=== PATIENT | female | born 1995 | race Caucasian/White ===

== ENCOUNTER 2024-03-30 05:55 | Emergency (ER) | payer OTHER, BC, SELFPAY ==
[2024-03-30 06:13] VITALS: BP 149/91; PULSE 93; O2SAT 100; BMI 27.4
[2024-03-30 06:33] VITALS: TEMP 36.6
--- NOTE | 2024-03-30 06:39 | ED_ITS ---
HPI - Nausea/Vomiting/Diarrhea General Chief complaint: Nausea/Vomiting/Diarrhea Stated complaint: VOMITING Time Seen by Provider: 03/30/24 06:34 Source: patient Mode of arrival: walk-in Limitations: no limitations History of Present Illness HPI Narrative: patient presents complaining of recurrent vomiting. Also has epigastric pain. Similar problem in the past with unclear cause despite workup by GI. Took Zofran and it has not helped. Still has gallbladder . States in past HIDA scan was neg. Related Data Allergies Allergy/AdvReac Type Severity Reaction Status Date / Time amoxicillin [From Augmentin] Allergy Intermediate Hives Verified 03/30/24 06:17 clavulanic acid Allergy Intermediate Hives Verified 03/30/24 06:17 [From Augmentin] hydromorphone [From Dilaudid] Allergy Intermediate Hives Verified 03/30/24 06:17 Penicillins Allergy Intermediate Hives Verified 03/30/24 06:17 cefaclor [From Ceclor] Allergy Mild Hives Verified 03/30/24 06:17 Review of Systems ROS Status of ROS 10 or more systems reviewed and unremark able except as noted in history and below Exam Constitutional Vital Signs, click to edit/add: Last Vital Signs Temp 97.8 F 03/30/24 06:33 Pulse 93 H 03/30/24 06:13 Resp 20 03/30/24 06:13 BP 149/91 H 03/30/24 06:13 Pulse Ox 100 03/30/24 06:13 O2 Del Method Room Air 03/30/24 06:13 Common normals: no apparent distress, average body habitus, oriented x3, no limitations, healthy appearing, alert and well nourished [facility] Common normals: normocephalic and head/scalp atraumatic Respiratory Common normals: normal respiratory effort, no retractions, no use of accessory muscles and clear to auscultation bilaterally Cardio Common normals: regular rate, regular rhythm, S1 normal heart sound and S2 normal heart sound GI Common normals: Normal to inspection, nondistended, normoactive bowel sounds present and soft to palpation Other: mild epigastric tenderness. No guarding Extremity Common normals: normal to inspection and full ROM Neuro Common normals: oriented x3, CN's II-XII intact bilaterally, moves all extremities and no focal motor deficits Psych Appearance: grossly normal Course Vital Signs Vital signs: Vital Signs Pulse Rate 93 H 03/30/24 06:13 Respiratory Rate 20 03/30/24 06:13 Blood Pressure 149/91 H 03/30/24 06:13 Pulse Oximetry 100 03/30/24 06:13 Oxygen Delivery Method Room Air 03/30/24 06:13 Temperature 97.8 F 03/30/24 06:33 Pulse Rate 93 H 03/30/24 06:13 Respiratory Rate 20 03/30/24 06:13 Blood Pressure 149/91 H 03/30/24 06:13 Pulse Oximetry 100 03/30/24 06:13 Oxygen Delivery Method Room Air 03/30/24 06:13 MDM - Nausea/Vomiting/Diarrhea MDM Narrative Medical decision making narrative: presents with epigastric pain and vomiting. workup initiated and care transferred to oncoming physician at change of shift Discharge Plan Discharge Chief Complaint: Nausea/Vomiting/Diarrhea Clinical Impression: Nausea & vomiting Patient Disposition: Still a Patient Print Language: Tristanian Referrals: Petra Rey NP [Primary Care Provider] - 1 week
[2024-03-30] MEDS: 0.9 % SODIUM CHLORIDE 1,000 ML 999 ML IV (06:51)
[2024-03-30] MEDS: PROMETHAZINE HCL 12.5 MG in 0.9 % SODIUM CHLORIDE 50 ML 202 MG IV ×2 (06:52→08:27)
[2024-03-30 07:02] LABS: Basophils Absolute Auto 0.1 10^3/uL (0.0-0.1); Basophils Percent Auto 0.8 % (0.2-2.0); Eosinophils Absolute Auto 0.1 10^3/uL (0.0-0.7); Eosinophils Percent Auto 1.9 % (0.9-7.0); Hematocrit 44.4 % (36.0-48.0); Hemoglobin 14.5 g/dL (12.0-16.0); Immature Granulocytes Abs Auto 0.01 10^3/uL (0.00-0.03); Immature Granulocytes Pct Auto 0.2 % (0.0-0.5); Lymphocytes Absolute Auto 1.7 10^3/uL (1.2-3.8); Lymphocytes Percent Auto 27.9 % (20.5-60.0); Mean Corpuscular HGB Conc 32.7 g/dL (29.9-35.2); Mean Corpuscular Hemoglobin 28.4 pg (26.7-34.0); Mean Corpuscular Volume 87.1 fL (81.0-99.0); Mean Platelet Volume 9.8 fL (9.5-13.5); Monocytes Absolute Auto 0.3 10^3/uL (0.3-0.8); Monocytes Percent Auto 5.4 % (1.7-12.0); Neutrophils Absolute Auto 3.9 10^3/uL (1.4-6.5); Neutrophils Percent Auto 63.8 % (43.0-75.0); Platelet Count 345 10^3/uL (150-450); Red Cell Distribution Width 12.1 % (11.0-15.0); White Blood Count 6.2 10^3/uL (4.0-11.0)
[2024-03-30 07:06] LABS: Lactate/Lactic Acid 1.2 mmol/L (0.4-2.0)
[2024-03-30 07:15] LABS: Alanine Aminotransferase 21 U/L (14-59); Albumin Level 4.1 g/dL (3.4-5.0); Alkaline Phosphatase 78 U/L (46-116); Anion Gap 12.9; Aspartate Amino Transferase 17 U/L (15-37); BUN Creatinine Ratio 21.3; Bilirubin Total 0.5 mg/dL (0.2-1.0); Calcium 9.5 mg/dL (8.5-10.1); Carbon Dioxide 28.7 mmol/L (21.0-32.0); Chloride 101 mmol/L (98-107); Estimated GFR (African America >60 (>=60); Estimated GFR (Non-African Ame >60 (>=60); Globulin 4.3 g/dL; Glucose 85 mg/dL (74-106); Potassium 3.6 mmol/L (3.5-5.1); Sodium 139 mmol/L (136-145); Total Protein 8.4 g/dL (6.4-8.2); Troponin I High Sensitivity <4.0 pg/mL (4.0-51.3)
[2024-03-30 07:54] LABS: Bilirubin Urine NEGATIVE (NEGATIVE); Blood Urine TRACE-I (NEGATIVE); Clarity Urine CLEAR (CLEAR); Color Urine YELLOW (YELLOW); Glucose Urine UA NEGATIVE (NEGATIVE); Ketones Urine NEGATIVE (NEGATIVE); Leukocyte Esterase Urine TRACE (NEGATIVE); Nitrite Urine NEGATIVE (NEGATIVE); Protein Urine NEGATIVE (NEG/TRACE); Urobilinogen Urine 0.2 EU/dL (0.2-1.0)
[2024-03-30 08:01] LABS: HCG Qualitative Urine* NEGATIVE (NEGATIVE)
[2024-03-30 08:11] LABS: Urine Microscopic Indicated YES
[2024-03-30 08:19] LABS: RBC Urine 0-2 #/HPF (0-2)
[2024-03-30 08:20] LABS: Bacteria Urine MODERATE #/HPF (NONE SEEN); Mucus Urine TRACE (NONE SEEN); Squamous Epithelial Cell Urine FEW #/LPF (NONE/RARE)
[2024-03-30 08:21] LABS: Urine Culture Indicated YES
[2024-03-30] MEDS: FAMOTIDINE/PF 20 MG/2 ML VIAL IV (08:28)
[2024-03-30 08:36] VITALS: BP 128/84; PULSE 82; O2SAT 98
== END 2024-03-30 09:06 | disposition home or self-care (01) ==
PROVIDERS: Emergency Provider Internal Medicine; PCP Nurse Practitioner Family
DX: K29.70 Gastritis, unspecified, without bleeding (principal)
CPT/HCPCS: 36415; 80053; 81001; 83605; 83690; 84484; 84703; 85025; 87086; 96365; 96366; 96375; 99284

== ENCOUNTER 2025-09-05 19:27 | Emergency (ER) | payer OTHER, BC, SELFPAY ==
--- OUTSIDE RECORDS SUMMARY | 2024-09-03 12:00 | XMS_ITS ---
Author Organization [facility] es Address [address] [place] [address] Care Team Providers Care Rn Home Care Name Role Phone Steph Jones Primary Care Provider [phone] REASON FOR VISIT 3 month f/u; PPW DUE & PAYMENT Encounters Encounter Location Date Provider Diagnosis [address] [place] [address] 09/03/2024 Steph Jones Plan Of Treatment No Information Progress Notes * ROSCOE MICHELLE LDOB: [birth year] (30 yo F)Acc No.[id number]:09/03/2024 Behavioral Health Patient: ROSCOE TORRES Appointment Provider: JAMES MAHMOOD- :1995 A ge:29 Y S ex:Female Date:09/03/2024 Address:[facility] [address] [id number] Subjective: * Chief Complaints: * 3 month f/u; PPW DUE & PAYMENT Billing Information: * Procedure Codes: * Electronic signature of JAMES Devine i on 09/05/2025 at 07:34 PM EDT Sign off status: Pending * Appointment Provider: MARITA MAHMOODP- Date: Generated for Rubi ng/Faxing/eTransmitting on: 07:34 PM EDT
[2025-09-05 19:31] VITALS: BP 160/100; PULSE 96; TEMP 36.9; O2SAT 100; BMI 28.2
--- OUTSIDE RECORDS SUMMARY | 2025-09-05 19:34 | XMS_ITS | Patient Health Record ---
Author Organization [facility] es Address [address] [place] [address] Care Team Providers Care Emulsion Operator Name Role Phone Steph Jones Primary Care Provider Allergies Allergen (clinical drug ingredient) Drug/Non Drug Allergy documented on EMR Reaction Allergy Type Onset Date Status amoxicillin / clavulanate Augmentin hives Drug Allergy Active Biaxin hives Drug Allergy Active cefaclor Cefaclor hives Drug Allergy Active vortioxetine Trintellix stomach upset Drug Allergy Active naltrexone Naltrexone anaphylaxis Drug Allergy Act melissa Penicillin hives Drug Allergy Active Reason For Referral No Information Medications Medication SIG (Take, Route, Frequency, Duration) Notes Start Date End Date Status Ambien 5 MG Tablet 1 tablet orally as needed (prn) Not-Taking/PRN ALPRAZolam 0.25 MG Tablet 1 tablet orally as needed (prn) Not-Taking/PRN hydrOXYzine Pamoate 25 MG Capsule 1 or 2 capsules 3 times a day as needed Orally every 8 hrs Active Famotidine Active QUEtiapine Fumarate 50 mg Tablet TAKE 1 TABLET BY MOUTH AT BEDTIME as DIRECTED; Duration: 30 days Active Victoza 18 MG/3ML Solution as directed Subcutaneous Active Fetzima 20 MG Capsule Extended Release 24 Hour 1 capsule daily for 2 days then increase to 2 capsules daily. Orally Once a day; Duration: 30 day(s) 03/14/2022 Not-Taking/P RN Wellbutrin XL 300 MG Tablet Extended Release 24 Hour 1 tablet in the morning Orally Once a day; Duration: 30 days 11/05/2023 Not-Takin g/PRN Wellbutrin XL 150 MG Tablet Extended Release 24 Hour 1 tablet in the morning Orally Once a day; Duration: 30 days 11/05/2023 Active buPROPion HCl ER (XL) 300 mg Tablet Extended Release 24 Hour TAKE ONE TABLET BY MOUTH ONCE DAILY; Duration: 30 Not-Taking/PRN Victoza 18 MG/3ML Solution Pen-injector as directed Subcutaneous once a day Not-Taking/PRN Albuterol Sulfate HFA Active LORazepam 0.5 mg Tablet TAKE 1 TABLET BY MOUTH TWICE DAILY as NEEDED FOR ANXIETY as DIRECTED; Duration: 30 days 06/04/2024 Active ZyrTEC Allergy 10 MG Tablet 4 tablets Orally daily Activ e busPIRone HCl 10 mg Tablet TAKE 1 TABLET BY MOUTH TWICE DAILY oral as directed; Duration: 30 days Not-Taking/PRN lamoTRIgine 200 mg Tablet TAKE 1 TABLET BY MOUTH ONCE DAILY 0ral once a day; Duration: 30 days Not-Takin g/PRN Propranolol HCl 10 mg Tablet TAKE 1 TABLET BY MOUTH TWICE DAILY; Duration: 30 days Active Social History Tobacco Use: Social History Observation Description Date Details (start date - stop date) Never Smoker NA - NA Social History General Social Info Question Answer Notes Depression Screening (PHQ-9): Little int erest or pleasure in doing things Several days Feeling down, depressed, or hopeless Several day s Trouble falling or staying asleep, or sleeping t oo much Nearly every day Feeling tired or having little energy Nearly marcela ry day Poor appetite or overeating Not at all Feeling bad about yourself-o r that you are a failure or have let yourself or your family down Not at all Trouble concentrating on thi ngs, such as reading the newspaper or watching television Several days Moving or speaking so slowly that other people could have noticed. Or the opposite being so fidgety or restless that you have been moving around a lot more than usual Not at all Thoughts that you would be b hope off , or of hurting yourself in some way Not at all Total Score 9 Intepretation Mild Depression Tobacco Screen: Are you a: never smoker Alcohol Screening: Did you have a drink containing alcohol in the past year? Yes How often did you have a drink containing alcohol in the past year? Monthly or less (1 point) How many drinks did you have on a typical day when you were drinking in the past year? 1 or 2 (0 points) How often did you have six or more drinks on one occasion in the past year? Never (0 points) Points 1 Interpretation Negative Problems Problem Type SNOMED Code ICD Code Onset Dates Problem Status W/U Status Risk Notes Problem Posttraumatic stress disorder (87842742) PTSD (post-traumatic stress disorder) (F43.10) Active confirmed Problem Generalized anxiety disorder (75300130) Generalized anxiety disorder (F41.1) Active confirmed Problem Recurrent major depression (85565438) Major depressive disorder, recurrent episode with anxious distress (F33.9) Active confirmed Plan Of Treatment No Information Insurance Providers Payer Name Payer Address Payer Phone Subscriber Number Group Number Insured Name Patient Relationship to Insured Coverage Start Date Coverage End Date [employer] [address] [place] [address] [id number] ROSCOE MICHELLE Self - patient is the insured [address] [facility] [address] [place] [address] [id number] ROSCOE MICHELLE Self - patient is the insured 2 [facility] [employer] [address] CLAIMS [place] [address] [id number] ROSCOE MICHELLE Self - patient is the insured 2 3 [employer] MEDICAID [employer] after [employer] [address] [place] [address] [id number] ROSCOE MICHELLE Self - patient is the insured 2 3 [facility] [address] [place] [address] [id number] ROSCOE MICHELLE Self - patient is the insured 3 3 Medical (General) History Medical History History ICD Code anxiety MDD PTSD Asthma polycystic kidney disease (PKD) liver disease Surgical History Surgery Date(Month/Year) paradectomy 2015 lt knee scope 2007 bilateral tubes in ears
--- OUTSIDE RECORDS SUMMARY | 2025-09-05 19:34 | XMS_ITS | Encounter Summary ---
Author Organization [facility] Address [address] [place] [address] Care Team Providers Care Beauty Consultant Name Role Phone Marv Bejarano MD Primary Care Provider [phone] Radha Carbajal RAMP ATTENDANT Unavailable [phone] Encounter Details Date Type Department Care Team (Late Contact Info) Description 06/03/2023 Abstract [facility] [address] [place] [id number] Jethro Calderon MD 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 [facility] 2 [place] [id number] documented as of this encounter Visit Diagnoses Not on filedocumented in this encounter Care Teams Beauty Consultant Relationship Specialty Start Date End Date Marv Bejarano MD PCP - General Family Medicine 05/12/23 Radha Carbajal NP [address] [facility] 1 [place] [phone] PCP - [facility] 05/24/2302/21 documented as of this encounter
--- OUTSIDE RECORDS SUMMARY | 2025-09-05 19:34 | XMS_ITS | Patient Health Record ---
Author Organization [facility] Address [address] [place], [place] [id number] Care Team Providers Care Flight Communications Operator Name Role Phone Dell Smith Unavailable [phone] Allergies Allergen (clinical drug ingredient) Drug/Non Drug Allergy documented on EMR Reaction Allergy Type Onset Date Status amoxicillin / clavulanate Augmentin Unknown Drug Allergy Active Biaxin Unknown Drug Allergy Active Medicinal cephalosporin and acting as antibacterial agent (FN) Cephalosporins Unknown Drug Allergy Active Penicillin Unknown Drug Allergy Active Reason For Referral Reason Patient referred for recession eval Diagnosis 1 Encounter for screen ing for dental disorders (Z13.84) Referral Organization [facility] Referring Provider First Name Dell Referring Provider Last Name Luis Referring Provider Speciality [facility] Referred Provider [facility] Periodont[facility] s [facility] Referred Provider Specialty Periodontics General Notes Dell Smith 05/2025 08:41:06 PM >Hard copy referral given to patient, Liv Funes 03/18/2025 01:36:54 PM >1st attempt to contact pt LM, Liv Funes 05/09/2025 02:41:18 PM >2nd attempt to contact pt and she states she has not called to schedule yet. Referral Priority Routine Medications Medication SIG (Take, Route, Frequency, Duration) Notes Start Date End Date Status oxyCODONE HCl 5 MG TAKE 1 TO 2 TABLET(S ) BY MOUTH EVERY 6 HOURS NEEDED FOR PAIN Oral; Duration: 8 Days Active Gabapentin 300 MG TAKE 1 TO 2 CAPSULE(S) BY MOUTH TWICE DAILY NEEDED FOR PAIN FOR 30 DAYS Oral; Duration: 30 Days Active Topiramate 25 MG TAKE 1 TABLET BY MOUTH AT BEDTIME Oral; Duration: 30 Days Not-Taking Sulfamethoxazole-Trimethopr im 800-160 MG TAKE 1 TABLET BY MOUTH EVERY 12 HOURS Oral; Duration: 5 Days Not-Taking Cyclobenzaprine HCl 10 MG TAKE 1 TABLET BY MOUTH 3 TIMES DAILY NEEDED FOR BACK SPASMS Oral; Duration: 10 Days Active predniSONE 10 MG Take 4 Tablets by mouth once daily x 3 DAYS, 3 once daily x 3 DAYS, 2 once daily x 3 DAYS, THEN 1 once daily X 3 DAYS Oral; Duration: 12 Days Active buPROPion HCl ER (XL) 150 MG TAKE 1 TABLET BY MOUTH EVERY MORNING Oral; Duration: 30 Days Active Propranolol HCl 10 MG TAKE 1 TABLET BY MOUTH TWICE DAILY Oral; Duration: 30 Days Active Doxycycline Monohydrate 100 MG Oral; Duration: 7 Days Not-Taking Social History Sex Assigned At : Social History Observation Description Sex Assigned At Female Tobacco Control (Standard) Question Answer Notes Additional Findings: Tobacco non-user Current no nsmoker Problems Problem Type SNOMED Code ICD Code Onset Dates Problem Status W/U Status Risk Notes Problem BMI 25-29 - overweight (604432592) BMI 27.0-27.9, adult (Z68.27) Active confirmed Vital Signs Blood pressure diastolic 97 mm Hg 03/24/2025 Height-cm 171.45 cm 03/24/2025 Weight-kg 79.38 kg 03/24/2025 Height 67.5 in 03/24/2025 Blood pressure systolic 140 mm Hg 03/24/2025 Weight 175 lbs 03/24/2025 BMI 27 kg/m2 03/24/2025 Encounters Encounter Location Date Provider Diagnosis [facility] [address] [place] [phone] 02/28/2025 Dell Smith BMI 27.0-27.9,adul t Z68.27 ; Encounter for screening for dental disorders Z13.84 ; Dietary counseling Z71.3 ; Exercise counseling Z71.82 ; Necrosis of 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 ; Dental caries into dentine K02.62 ; Encounter for dental examination and cleaning with abnormal findings Z01.21 and Encounter for dental examination and cleaning without abnormal findings Z01.[address] [facility] [address] [place] [phone] 03/24/2025 Dell Smith Dietary counseling Z71.3 ; Exercise counseling Z71.82 ; Encounter for dental examination and cleaning without abnormal findings Z01.20 and BMI 27.0-27.9,adult Z68.27 Assessments Encounter Date Diagnosis (ICD Code) Assessment Notes Treatment Notes Treatment Clinical Notes Section Notes 02/28/2025 BMI 27.0-27.9,adult (ICD-10 - Z68.27) b 03/24/2025 Dietary counseling (ICD-10 - Z71.3) 03/24/2025 Exercise counseling (ICD-10 - Z71.82) 02/28/2025 Encounter for screening for dental disorders (ICD-10 - Z13.84) b 02/28/2025 Dietary counseling (ICD-10 - Z71.3) b 03/24/2025 Encounter for dental examination and cleaning without abnormal findings (ICD-10 - Z01.20) 02/28/2025 Exercise counseling (ICD-10 - Z71.82) b 03/24/2025 BMI 27.0-27.9,adult (ICD-10 - Z68.27) 02/28/2025 Necrosis of pulp (ICD-10 - K04.1) b 02/28/2025 Dental caries into dentine (ICD-10 - K02.62) b 02/28/2025 Encounter for dental examination and cleaning with abnormal findings (ICD-10 - Z01.21) b 02/28/2025 Encounter for dental examination and cleaning without abnormal findings (ICD-10 - Z01.20) b Plan Of Treatment Next Appt Details Provider Name:Winsome Christina , 10/05/2025 02:15:00 PM, [address] [place] [address], [phone], Insurance Providers Payer Name Payer Address Payer Phone Subscriber Number Group Number Insured Name Patient Relationship to Insured Coverage Start Date Coverage End Date [employer]urelia [address] [place] [address] [id number] Jefry Calderon Self - patient is the insured 5 [facility] [address] [place] [address] [id number] Rc Calderon Spouse - patient is the spouse of the insured 0
--- OUTSIDE RECORDS SUMMARY | 2025-09-05 19:34 | XMS_ITS | Encounter Summary ---
Author Organization [facility] Address [address] [place] [address] Phone Care Team Providers Care Target Protection Specialist Name Role Phone Unavailable Primary Care Provider Unavailabl e Encounter Details Date Type Department Care Team (Late st Contact Info) Description 07/14/2025 Scanned Document [facility] [address] [place] [phone] Scanning, Generic Provider Social History Tobacco Use Types Packs/Day Years Used Date Smoking Tobacco: Never Assessed Comments Unknown Sex and Gender Information Value Date Recorded Sex Assigned at Not on file Legal Sex Female 8:05 AM EST Gender Identity Not on file Sexual Orientation Not on file documented as of this encounter Plan of Treatment Not on file documented as of this encounter Procedures Procedure Name Priority Date/Time Associated Diagnosis Comments ECHOCARDIOGRAM 07/14/2025 documented in this encounter Results * Echocardiogram (07/14/2025) Narrative 07/14/2025 Ordered by an unspecified provider. us Generic Provider Scanning CV ECHO PROCEDURES Fin al Result documented in this encounter Visit Diagnoses Not on filedocumented in this encounter
--- OUTSIDE RECORDS SUMMARY | 2025-09-05 19:34 | XMS_ITS | Clinical Summary ---
Author Organization [facility] Address [id number] [address] [place] [address] Care Team Providers Care Liner Man Name Role Phone Jocelyne Boland MD Primary Care Provider [phone] Allergies Active Allergy Reactions Criticality Noted Date Comments Amoxicillin-Pot Clavulanate Hives 12/31/19 18 Cefaclor Rash Low 12/07/2010 Ciprofibrate Hives 12/31/2017 Clarithromycin Rash Low 12/07/2010 Hydromorphone (Bulk) Hives 12/31/2017 Penicillin Hives 12/31/2017 Sulfa (Sulfonamide Antibiotics) Hives 05/2018 Medications No known medications Social History Tobacco Use Types Packs/Day Years Used Date Smoking Tobacco: Never Smokeless Tobacco: Never Alcohol Use Standard Drinks/Week Comments Yes 0 (1 standard drink = 0.6 oz pur e alcohol) Childcare Answer Date Recorded Childcare Unknown 05/05/2019 Employment Answer Date Recorded Employment Unknown 05/05/2019 Purpose - Life Answer Date Recorded Purpose and direction in life Unknown Comments No Sex and Gender Information Value Date Recorded Sex Assigned at Not on file Legal Sex Female 11:55 AM EDT Gender Identity Not on file Sexual Orientation Not on file Last Filed Vital Signs Vital Sign Reading Time Taken Comments Blood Pressure 128/102 03/20/2021 9:25 PM EDT Pulse 87 03/20/2021 9:25 PM EDT Temperature 37.2 C (98.9 F) 03/20/2021 8:03 PM EDT Respiratory Rate 20 03/20/2021 9:25 PM EDT Oxygen Saturation 99% 03/20/2021 9:25 PM EDT Inhaled Oxygen Concentration - - Weight 81.6 kg (180 lb) 03/20/2021 8:03 PM EDT Height 170.2 cm (5' 7 ) 03/20/2021 8:03 PM EDT Body Mass Index 28.19 03/20/2021 8:03 PM EDT Plan of Treatment Not on file Medical Devices Not on file Insurance [place] MED[place] [facility] [place] [address] Care Teams Liner Man Relationship Specialty Start Date End Date Jocelyne Boland MD [address] [place] [address] PCP - General 02/18/13
--- OUTSIDE RECORDS SUMMARY | 2025-09-05 19:34 | XMS_ITS | Encounter Summary ---
Author Organization [facility] Address [address] [facility] [place] [address] Care Team Providers Care Carpet Mechanic Name Role Phone Marv Bejarano MD Primary Care Provider [phone] Encounter Details Date Type Department Care Team (Late Contact Info) Description 08/25/2024 External Result Encounter [facility] External Department Unsolicited Hallie Jefferson, PARKING GARAGE MANAGER [address] [place] [address] Social History Tobacco Use Types Packs/Day Years Used Date Smoking Tobacco: Never Passive Smoke Exposure: Never Smokeless Tobacco: Never Alcohol Use Standard [...] Start Date 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 [phone] documented as of this encounter Procedures Procedure Name Priority Date/Time Associated Diagnosis Comments US PELVIS 08/25/2024 2:57 PM EDT documented in this encounter Results * US pelvis (08/25/2024 2:57 PM EDT) Anatomical Region Laterality Modality Pelvis Ultrasound 08/25/2024 2:57 PM EDT Narrative 08/25/2024 3:08 PM EDT [facility] [address] [place] [address] [place] [address] Ultrasound Report Signed Patient: Jefry Calderon MR#: [id number] : 1995 Acct:[id number] Age/Sex: 29 / F ADM Date: 08/25/24 Loc: Room: Type: [facility] Attending Dr: Hallie Jefferson CONTRACTING SPECIALIST Ordering Provider: MONIQUE Perez Date of Service: 08/25/24 US/US transvaginal: R10.2 ([id number]) US/US pelvic complete: R10.2 Copies to: MONIQUE Perez Pelvic ultrasound. Reason for exam: IUD placement. Pelvic pain. Comparison: none Technique: Transabdominal imaging of the uterus and ovaries was performed. Transvaginal imaging of the uterus and ovaries was also obtained. Additional spectral Doppler analysis of the ovaries was also obtained. Findings: Uterus measures 6.9 x 4.4 x 5.4 cm. No measurable fibroid is seen. IUD is seen within the endometrial canal within the fundus. No abnormal endometrial thickening is seen measuring 3 mm. Right ovary measures 2.6 x 2.5 x 2.4 cm. Left ovary measures 4.1 x 2.3 x 2.2 cm. No adnexal mass. Normal arterial and venous Doppler waveforms. No free fluid. US/US transvaginal Impression: Unremarkable study. IUD in satisfactory position. Impression dictated by: Baldev Menjivar Jr. DMohan08/25/2024 3:05 PM Dictation Location: [place] [address] Tech: Mimi Serrano Transcribed By: BRIANNA 08/25/24 1505 Dictated By: Baldev Menjivar Jr, DO 08/25/24 1457 Signed By: <Electronically signed by Baldev Menjivar Jr, DO in OV> 08/25/24 1505 Procedure Note Radiology, Radiologist, - 08/25/2024 [facility] [address] [place] [address] Ultrasound Report Signed Patient: Jefry Calderon LMR#: [id number] : 1995Acct:[id number] Age/Sex: Date: 08/25/24 Loc: Room:Type: [facility] Attending Dr: Hallie Jefferson CONTRACTING SPECIALIST Ordering Provider: MONIQUE Perez Date of Service: 08/25/24 US/US transvaginal: R10.2 ([id number]) US/US pelvic complete: R10.2 Copies to: MONIQUE Perez Pelvic ultrasound. Reason for exam: IUD placement. Pelvic pain. Comparison: none Technique: Transabdominal imaging of the uterus and ovaries was performed.Transvaginal imaging of the uterus and ovaries was also obtained. Additional spectral Doppleranalysis of the ovaries was also obtained. Findings: Uterus measures 6.9 x 4.4 x 5.4 cm. No measurable fibroid isseen. IUD is seen within the endometrial canal within the fundus. No abnormal endometrialthickening is seen measuring 3 mm. Right ovary measures 2.6 x 2.5 x 2.4 cm. Left ovary measures 4.1 x 2.3 x2.2 cm. No adnexal mass. Normal arterial and venous Doppler waveforms. No free fluid. US/US transvaginal Impression: Unremarkable study. IUD in satisfactory position. Impression dictated by: Baldev Menjivar Jr., D.O.08/25/2024 3:05 PM Dictation Location: [place] [address] Tech: Mimi Serrano Transcribed By: BRIANNA 08/25/24 1505 Dictated By: Baldev Menjivar Jr, DO 08/25/24 1457 Signed By: <Electronically signed by Baldev Menjivar Jr, DO inOV> 08/25/24 1505 us Hallie Jefferson PARKING GARAGE MANAGER IMG US PROCEDURES Final R esult documented in this encounter Visit Diagnoses Not on filedocumented in this encounter Care Teams Carpet Mechanic Relationship Specialty Start Date End Date Marv Bejarano MD PCP - General Family Medicine 05/12/23 documented as of this encounter
--- OUTSIDE RECORDS SUMMARY | 2025-09-05 19:34 | XMS_ITS | Clinical Summary ---
Author Organization [facility] Address [address] [place] [address] Phone Care Team Providers Care Guest Experience Captain Name Role Phone Unavailable Primary Care Provider Unavailabl e Encounters Date Type Department Care Team Description 07/14/2025 Scanned Document [facility] [address] [place] [address] Scanning, Generic Provider from Last 3 Months Social History Tobacco Use Types Packs/Day Years Used Date Smoking Tobacco: Never Assessed Comments Unknown Sex and Gender Information Value Date Recorded Sex Assigned at Not on file Legal Sex Female 8:05 AM EST Gender Identity Not on file Sexual Orientation Not on file Plan of Treatment Health Maintenance Due Date Last Done Comments HIV Screening 1995 Lipid Panel 1995 Yearly Adult Physical 1995 MMR Vaccines (1 of 1 - Stand brooke series) 1994 Hepatitis C Screening 2011 Hepatitis B Vaccines (1 of 3 - 19+ 3-dose series) 01/25/2012 Cervical Cancer Screening 2014 HPV/Cotest 2014 Pap Smear 2014 DTaP/Tdap/Td Vaccines (1 - Tdap) 2015 HPV Vaccines (1 - 3-dose sta ndard series) 01/25/2020 COVID-19 Vaccine ( - 2023-2 5 season) 2025 Influenza Vaccine (#1) 2025 Zoster Vaccines (1 of 2) 2043 HIB Vaccines Aged Out No longer eligi ble based on patient's age to complete this topic Hepatitis A Vaccines Aged Out No long er eligible based on patient's age to complete this topic IPV Vaccines Aged Out No longer eligi ble based on patient's age to complete this topic Meningococcal Vaccine Aged Out No marlin catracho eligible based on patient's age to complete this topic Pneumococcal Vaccine: Pediat rics and At-Risk Adult Patients Aged Out No longer esa gible based on patient's age to complete this topic Rotavirus Vaccines Aged Out No longer eligible based on patient's age to complete this topic Procedures Procedure Name Priority Date/Time Associated Diagnosis Comments ECHOCARDIOGRAM 07/14/2025 from Last 3 Months Results * Echocardiogram (07/14/2025) Narrative 07/14/2025 Ordered by an unspecified provider. us Generic Provider Scanning CV ECHO PROCEDURES Fin al Result from Last 3 Months Insurance [employer] [facility] [employer] [facility]
[2025-09-05 19:44] VITALS: O2SAT 99
--- NOTE | 2025-09-05 19:45 | ECG_ITS ---
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 Measurements Intervals [place] Rate: 74 P: 63 IN: 148 QRS: -32 QRSD: 90 T: 51 QT: 370 QTc: 397 Interpretive Statements 1100 Sinus rhythm 7200 Abnormal left axis deviation 9130 borderline ECG Compared to ECG 02/25/2023 22:30:44 Left-axis deviation now present Electronically Signed On 09-06-2025 7:10:40 EDT by PHIL RENDON M.D.
--- NOTE | 2025-09-05 19:45 | CT_ITS ---
The [address] [address] Patient Name: ROSCOE MICHELLE MRN: [id number] date: 1995 Sex: F Assigned Patient Location: ER Current Patient Location: ER Accession/Order Number: [id number] Exam Date: 09/05/2025 20:16 Report Date: 09/05/2025 20:53 At the request of: MILA ANDERSON MD Procedure: CT head/brain wo con CT head/brain wo con 09/05/2025 8:24 PM SIGNS AND SYMPTOMS: ^dizziness, right arm feels heavy TECHNIQUE:Multi-detector CT axial slices of the brain were obtained without IV contrast. CT was performed with one or more of the following dose reduction techniques: Automated exposure control, adjustment of the mA and/or kV according to patient size, or use of iterative reconstruction technique. COMPARISON: None. FINDINGS: There is no shift of the midline structures, acute intracranial bleeding, mass effects, or evidence of acute ischemia. The ventricular system is normal in size. The brainstem and the cerebellum are unremarkable. The visualized intraorbital contents, the visualized paranasal sinuses, and the infratemporal soft tissues show no acute abnormality. The osseous structures in the skull base and the calvarium show no abnormality. CT/CT head/brain wo con IMPRESSION: No acute intracranial pathology. Impression dictated by: Karan Simmons M.D. 09/05/2025 8:53 PM Dictation Location: [place] [address] Electronically authenticated by: [id number] Y Date: 09/05/2025 20:53
--- NOTE | 2025-09-05 19:46 | ED_ITS ---
HPI - Neuro Symptoms/Deficit General Chief Complaint: Neuro Symptoms/Deficit Stated Complaint: left side numbness Time Seen by Provider: 09/05/25 19:32 Source: patient Mode of arrival: walk-in Limitations: no limitations History of Present Illness HPI Narrative: This 30-year-old female with a history of migraine headaches without aura presents for evaluation of dizziness and right sided heaviness in her arm as we ll as tingling in her lips.. Patient states that she was at work on Friday and after a meeting bent over and felt really dizzy and lightheaded like she may pass out. She thought she may be getting a migraine and took an Excedrin at that time as well as a Dramamine. She never did develop a headache but since that time has had dizziness, generally not feeling well and her right arm feels heavy with intermittent tingling in her lips. She does not have any neck pain or stiffness. She has not had a fever. She developed some chest pressure and a sensation that she had to remind herself to breathe over the weekend. She took a Protonix for the pressure in her chest without significant improvement. She states she has ongoing left-sided eye issues which are not new. She has ongoing right lower extremity weakness and numbness after having back surgery, this is also not new. She states she called her neurologist and was referred to the emergency department. She has not had any recent fever, cough, upper respiratory symptoms, abdominal pain nausea vomiting or diarrhea. She has not had any slurred speech or confusion. She states she does have a history of anxiety but does not feel anxious. Related Data Home Medications ?Medication ?Instructions ?Recorded ?Confirmed fremanezumab-vfrm 225 mg/1.5 mL 225 mg subcut .q30 day s 09/05/25 09/05/25 subcutaneous auto-injector (Ajovy) hydroxyzine pamoate 25 mg capsule 25 mg PO Q8H PRN anx iety 09/05/25 09/05/25 Previous Rx's ?Medication ?Instructions ?Recorded pantoprazole 40 mg tablet,delayed 40 mg PO DAILY #30 t abs 03/30/24 release (Protonix) Allergies Allergy/AdvReac Type Severity Reaction Status Date / Time amoxicillin (From Augmentin) Allergy Intermediate Hives Verified 09/05/25 19:31 clavulanic acid (From Allergy Intermediate Hives Verified 09/05/25 19:31 Augmentin) hydromorphone (From Dilaudid) Allergy Intermediate Hives Verified 09/05/25 19:31 Penicillins Allergy Intermediate Hives Verified 09/05/25 19:31 cefaclor (From Ceclor) Allergy Mild Hives Verified 09/05/25 19:31 Review of Systems ROS Status of ROS 10 or more systems reviewed and unremark able except as noted in history and below PFSH PFSH Social History Little interest or pleasure in doing things: not at all Feeling down, depressed, or hopeless: not at all Exam Narrative Exam Narrative: Vital signs and Nursing Notes reviewed: Patient is afebrile with a normal pulse, blood pressure is elevated 160/100, she is not hypoxic with pulse ox of 99% on room air General: Awake, alert, oriented, no acute distress, lying comfortably on the stretcher HEENT: Normocephalic atraumatic, mucous membranes are moist and pink, eyes are clear, normal conjunctiva, vision is grossly intact, posterior pharynx is normal in appearance. Neck: Supple, no meningeal signs Chest: Lungs are clear to auscultation with good air entry, there is no wheezing rhonchi or rales appreciated no accessory muscle use, patient is speaking in complete sentences-no chest wall tenderness to palpation CVS: Regular rate and rhythm S1-S2, no murmurs rubs or gallops, pulses are brisk and equal bilaterally ABD: Soft, nondistended, nontender, no rebound guarding or rigidity, bowel sounds are normal, no pulsatile masses appreciated Extremities: Moving all extremities, no lower extremity tenderness or swelling noted, negative Homans' sign, pulses are brisk and equal bilaterally Skin: Normal in appearance without rash,pallor, petechiae or purpura Neuro: No focal deficits; speech is clear, crepe maker strength is intact, positive rapid alternating hand movements are normal, negative pronator drift, upper and lower extremity strength and sensation is intact, there is no facial droop, s peech is clear, vision is grossly intact, NIH stroke scale is 0 Constitutional Vital Signs, click to edit/add: Last Vital Signs Temp 98.5 F 09/05/25 19:31 Pulse 96 H 09/05/25 19:31 Resp 16 09/05/25 19:31 BP 138/88 09/05/25 21:55 Pulse Ox 99 09/05/25 19:44 O2 Del Method Room Air 09/05/25 19:44 Course Vital Signs Vital signs: Vital Signs Temperature 98.5 F 09/05/25 19:31 Pulse Rate 96 H 09/05/25 19:31 Respiratory Rate 16 09/05/25 19:31 Blood Pressure 160/100 H 09/05/25 19:31 Pulse Oximetry 100 09/05/25 19:31 Oxygen Delivery Method Room Air 09/05/25 19:31 Temperature 98.5 F 09/05/25 19:31 Pulse Rate 96 H 09/05/25 19:31 Respiratory Rate 16 09/05/25 19:31 Blood Pressure 138/88 09/05/25 21:55 Pulse Oximetry 99 09/05/25 19:44 Oxygen Delivery Method Room Air 09/05/25 19:44 MDM - Neuro Symptoms/Deficit MDM Narrative Medical decision making narrative: This 30-year-old female the history of migraine headaches and anxiety as well as polycystic kidney disease presents for evaluation of heaviness in her right arm and pressure in her chest. Her symptoms started on Friday while at work. She states she went to a meeting and came back from the meeting and felt lightheaded and dizzy after bending down and feeling like she may pass out. She ultimately did not pass out but has not been feeling well since that time. She complains of some pressure in her chest. She does have a history of gastritis. She took a Protonix for that without significant improvement. She denies that she has a headache despite her history of migraines. She does not have any focal neurol ogic deficits on exam but subjectively states that her right arm feels heavy. EKG was ordered due to the complaint of chest pressure which is a sinus rhythm at 74 bpm with a left axis. An IV was placed and she was medicated with IV fluids. CT scan of the brain was ordered as well as a cardiac workup. She has a normal white count and stable hemoglobin. Electrolytes and liver function tests are normal. Troponin is normal. Urine is negative for infection and her test was negative. He was remained awake, alert and stable in the emergency department. CT scan of the brain is negative for acute findings. Patient verbalizes understanding of this. I offered her a migraine cocktail for her symptoms despite the fact that she does not have a headache and she was agreeable to this. She was given IV fluids, Compazine, Benadryl, Toradol and Solu-Medrol. Repeat BP is 138/88 On reevaluation she does not feel much better but her neuroexam is still normal. She will be discharged home at this time. She states she will call her neurologist for an appointment before her regularly scheduled appointment in November. She was encouraged return the emergency department for worsening sy mptoms or any concerns. Lab Data Labs: Lab Results 09/05/25 09/05/25 Range/Units 20:05 20:11 WBC 7.8 (4.0-11.0) 10^3/uL RBC 5.08 (4.20-5.40) 10^6/uL Hgb 15.0 (12.0-16.0) g/dL Hct 43.9 (36.0-48.0) % MCV 86.4 (81.0-99.0) fL MCH 29.5 (26.7-34.0) pg MCHC 34.2 (29.9-35.2) g/dL RDW 12.3 (11.0-15.0) % Plt Count 334 (150-450) 10^3/uL MPV 9.4 L (9.5-13.5) fL Neut % (Auto) 65.6 (43.0-75.0) % Lymph % (Auto) 27.1 (20.5-60.0) % Morton % (Auto) 5.0 (1.7-12.0) % Eos % (Auto) 1.4 (0.9-7.0) % Baso % (Auto) 0.6 (0.2-2.0) % Neut # (Auto) 5.1 (1.4-6.5) 10^3/uL Lymph # (Auto) 2.1 (1.2-3.8) 10^3/uL Morton # (Auto) 0.4 (0.3-0.8) 10^3/uL Eos # (Auto) 0.1 (0.0-0.7) 10^3/uL Baso # (Auto) 0.1 (0.0-0.1) 10^3/uL Abs Immat Gran (auto) 0.02 (0.00-0.03) 10^3/uL Imm/Tot Granulo (auto) 0.3 (0.0-0.5) % Sodium 142 (136-145) mmol/L Potassium 3.5 (3.5-5.1) mmol/L Chloride 103 (98-107) mmol/L Carbon Dioxide 28.4 (21.0-32.0) mmol/L Anion Gap 14.1 BUN 13.0 (7.0-18.0) mg/dL Creatinine 0.78 (0.55-1.02) mg/dL Est GFR ( Amer) >60 (>=60 mL/min/1.73m^2) Est GFR (Non-Af Amer) >60 (>=60 mL/min/1.73m^2) BUN/Creatinine Ratio 16.7 Glucose 94 (74-106) mg/dL Calcium 9.4 (8.5-10.1) mg/dL Total Bilirubin 0.3 (0.2-1.0) mg/dL AST 19 (15-37) U/L ALT 32 (14-59) U/L Alkaline Phosphatase 104 (46-116) U/L Total Creatine Kinase 89 (26-192) U/L Troponin I High Sens <4.0 L (4.0-51.3) pg/mL Total Protein 9.5 H (6.4-8.2) g/dL Albumin 4.9 (3.4-5.0) g/dL Globulin 4.6 g/dL Albumin/Globulin Ratio 1.1 Urine Color Lt. yellow (YELLOW) Urine Clarity Clear (CLEAR) Urine pH 5.5 (5.0-9.0) Ur Specific [place] 1.010 (1.005-1.025) Urine Protein Negative (NEG/TRACE) mg/dL Urine Glucose (UA) Negative (NEGATIVE) mg/dL Urine Ketones Negative (NEGATIVE) mg/dL Urine Occult Blood Trace-i (NEGATIVE) Urine Nitrite Negative (NEGATIVE) Urine Bilirubin Negative (NEGATIVE) Urine Urobilinogen 0.2 (0.2-1.0) EU/dL Ur Leukocyte Esterase Trace A (NEGATIVE) Urine RBC None seen (0-2) #/HPF Urine WBC 0-2 A (NONE SEEN) #/HPF Ur Squamous Epith Cells Rare (NONE/RARE) #/LPF Urine Crystals None seen (None Seen) #/HPF Urine Bacteria Trace A (NONE SEEN) #/HPF Urine Casts None seen (NONE SEEN) #/LPF Urine Mucus None seen (NONE SEEN) Ur Culture Indicated? No Urine HCG, Qual Negative (NEGATIVE) Imaging Data CT scan - head: Radiologist's impression: ITS Impressions Head CT 09/05/25 19:45 IMPRESSION: No acute intracranial pathology. Impression dictated by: Karan Simmons M.D. 09/05/2025 8:53 PM Dictation Location: [place] [address] Electronically authenticated by: [id number] Y Date: 09/05/2025 20:53 ECG Data Attestation: I personally reviewed and interpreted this ECG as follows: (Sinus rhythm at 74 bpm, left axis deviation, no acute ST segment elevation or T wave inversion) Discharge Plan Discharge Chief Complaint: Neuro Symptoms/Deficit Clinical Impression: Right arm weakness, Dizziness Patient Disposition: Home, Self-Care Time of Disposition Decision: 22:23 Condition: Good Prescriptions / Home Meds: No Action pantoprazole [Protonix] 40 mg tablet,delayed release (DR/EC) 40 mg PO DAILY Qty: 30 0RF Ajovy Autoinjector 225 mg/1.5 mL auto-injector 225 mg SUBCUT .q30 days hydroxyzine pamoate 25 mg capsule 25 mg PO Q8H PRN (Reason: anxiety) Print Language: Jamaican Instructions: Weakness (ED), Dizziness (ED) Referrals: Petra Rey NURSE CARE MANAGER [Primary Care Provider] - 1 week
[2025-09-05 20:17] LABS: Hematocrit 43.9 % (36.0-48.0); Hemoglobin 15.0 g/dL (12.0-16.0); Immature Granulocytes Abs Auto 0.02 10^3/uL (0.00-0.03); Immature Granulocytes Pct Auto 0.3 % (0.0-0.5); Lymphocytes Absolute Auto 2.1 10^3/uL (1.2-3.8); Mean Corpuscular HGB Conc 34.2 g/dL (29.9-35.2); Mean Corpuscular Hemoglobin 29.5 pg (26.7-34.0); Mean Corpuscular Volume 86.4 fL (81.0-99.0); Platelet Count 334 10^3/uL (150-450); Red Blood Count 5.08 10^6/uL (4.20-5.40); White Blood Count 7.8 10^3/uL (4.0-11.0)
[2025-09-05 20:20] LABS: Glucose Urine UA NEGATIVE (NEGATIVE); HCG Qualitative Urine* NEGATIVE (NEGATIVE)
[2025-09-05] MEDS: 0.9 % SODIUM CHLORIDE 1,000 ML 1000 ML IV (20:34)
[2025-09-05 20:36] LABS: Alanine Aminotransferase 32 U/L (14-59); Albumin Globulin Ratio 1.1; Albumin Level 4.9 g/dL (3.4-5.0); Alkaline Phosphatase 104 U/L (46-116); Anion Gap 14.1; Aspartate Amino Transferase 19 U/L (15-37); Blood Urea Nitrogen 13.0 mg/dL (7.0-18.0); Calcium 9.4 mg/dL (8.5-10.1); Carbon Dioxide 28.4 mmol/L (21.0-32.0); Chloride 103 mmol/L (98-107); Creatine Kinase 89 U/L (26-192); Estimated GFR (African America >60 (>=60 mL/min/1.73m^2); Estimated GFR (Non-African Ame >60 (>=60 mL/min/1.73m^2); Globulin 4.6 g/dL; Glucose 94 mg/dL (74-106); Potassium 3.5 mmol/L (3.5-5.1); Sodium 142 mmol/L (136-145); Total Protein 9.5 g/dL (6.4-8.2)
[2025-09-05 20:39] LABS: Cast Seen? NONE SEEN #/LPF (NONE SEEN); Crystals Seen? None Seen #/HPF (None Seen); Urine Culture Indicated NO
[2025-09-05] MEDS: PROCHLORPERAZINE 10 MG/2 ML VIAL 5 MG IV (21:39)
[2025-09-05] MEDS: DIPHENHYDRAMINE HCL 50 MG/ML VIAL 12.5 MG IVP (21:40)
[2025-09-05] MEDS: METHYLPREDNISOLONE SOD SUCC PF 125 MG/2 ML VIAL IVP (21:40)
[2025-09-05] MEDS: KETOROLAC TROMETHAMINE 30 MG/ML VIAL IVP (21:40)
[2025-09-05 21:55] VITALS: BP 138/88
== END 2025-09-05 22:40 | disposition home or self-care (01) ==
PROVIDERS: Emergency Provider Emergency Medicine; PCP Nurse Practitioner Family
DX: R53.1 Weakness (principal); R42 Dizziness and giddiness; R20.2 Paresthesia of skin
CPT/HCPCS: 36415; 70450; 80053; 81001; 82550; 84484; 84703; 85025; 93005; 96361; 96374; 96375; 99285; J0780; J1200; J1885; J2919